=== PATIENT | male | born 1965 | race American Indian/Alaskan Native ===

== ENCOUNTER 2017-11-23 09:33 | Day surgery (SDC) | payer MEDICAID ==
[2017-11-13 13:00] VITALS: BMI 38.7
[2017-11-23] MEDS ORDERED: Propofol 10 mg/ml Inj (20 ML) ONE (10:42)
[2017-11-23] MEDS ORDERED: Sodium Chloride 0.9% 1,000 ML IV SCH (11:30)
[2017-11-23 11:56] VITALS: RESP 17
[2017-11-23 12:06] VITALS: BP 120/86; PULSE 55; TEMP 97.6; O2SAT 97
== END 2017-11-23 12:57 | disposition home or self-care (01) ==
LOC: ENDO 09:33
PROVIDERS: ATTEND Internal Medicine Gastroenterology
DX: Z12.11 Encounter for screening for malignant neoplasm of colon (principal); D12.0 Benign neoplasm of cecum; K29.50 Unspecified chronic gastritis without bleeding; K31.9 Disease of stomach and duodenum, unspecified; K64.8 Other hemorrhoids; I10 Essential (primary) hypertension; E11.9 Type 2 diabetes mellitus without complications; R11.10 Vomiting, unspecified; Z79.82 Long term (current) use of aspirin